=== PATIENT | male | born 1965 | race Asian ===

== ENCOUNTER → 2017-10-03 01:28 | Outpatient (CLI) | payer BC | END | disposition home or self-care (01) | LOC: AMB 01:28 | DX: S61.211A Laceration without foreign body of left index finger without damage to nail, initial encounter (principal) ==

== ENCOUNTER 2019-08-20 10:47 | Emergency (ER) | payer BC ==
[~2019-08-20] VITALS: Ht 185.4 cm; Wt 108.9 kg
[2019-08-20 10:53] VITALS: TEMP 97.9
[2019-08-20] MEDS ORDERED: AMLODIPINE BESYLATE PO (11:02)
[2019-08-20] MEDS ORDERED: LISI20TA11 PO (11:02)
[2019-08-20 12:06] VITALS: BP 148/93
== END 2019-08-20 12:06 | disposition home or self-care (01) ==
LOC: ED 10:47
DX: K04.7 Periapical abscess without sinus (principal)
CPT/HCPCS: 96372; 99283; J0696; J1885

== ENCOUNTER 2020-07-29 16:36 | Emergency (ER) | payer BC ==
[~2020-07-29] VITALS: Ht 185.4 cm; Wt 112.9 kg
[~2020-07-29 16:36] MED LIST: AMLODIPINE BESYLATE PO; LISI20TA11 PO
[2020-07-29 16:45] VITALS: BP 136/84; TEMP 98.8
[2020-07-29] MEDS ORDERED: LISI20TA31 PO (17:01)
== END 2020-07-29 16:50 | disposition home or self-care (01) ==
LOC: ED 16:36
DX: Z01.30 Encounter for examination of blood pressure without abnormal findings (principal)
CPT/HCPCS: 99281